=== PATIENT | female | born 1980 | race Caucasian/White ===

== ENCOUNTER 2020-09-19 11:12 | Outpatient (CLI) | payer MEDICAID, SELFPAY ==
--- NOTE | 2020-09-19 11:27 | XR_ITS ---
WS: [id number] Right shoulder, 3 views, 09/19/2020 Clinical Data: PAIN IN R SHOULDER/PINCHED NERVE IN NECK Comparison: Right shoulder, 10/13/2010. Findings: No fractures or dislocations are seen. The AC joint is normal. The adjacent right clavicle, right sca pula and ribs are normal. The soft tissues are unremarkable. XR/XR shoulder RT min 2V* [id number] Impression: Negative right shoulder.
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
== END 2020-09-19 11:13 | disposition home or self-care (01) ==
LOC: RAD 11:15
PROVIDERS: Family Provider Nurse Practitioner Family; Visit Provider Family Medicine
DX: M25.511 Pain in right shoulder (principal); G58.9 Mononeuropathy, unspecified
CPT/HCPCS: 72040; 73030

== ENCOUNTER 2021-04-27 11:30 | Emergency (ER) | payer MEDICAID, SELFPAY ==
[2021-04-27 11:56] VITALS: BP 142/85; PULSE 67; RESP 18; TEMP 36.8; O2SAT 98; BMI 28.1
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
== END 2021-04-27 12:52 | disposition home or self-care (01) ==
PROVIDERS: Emergency Provider Nurse Practitioner Family
DX: M79.641 Pain in right hand (principal)
CPT/HCPCS: 73000; 73130; 99282

== ENCOUNTER 2021-11-10 16:37 | Emergency (ER) | payer MEDICAID, SELFPAY ==
[2021-11-10 16:58] VITALS: BP 139/87; PULSE 71; RESP 16; TEMP 36.9; O2SAT 99
--- NOTE | 2021-11-10 17:35 | XRR_ITS ---
PROCEDURE INFORMATION: Exam: XR Right Wrist Exam date and time: 11/10/2021 5:35 PM Age: 41 years old Clinical indication: Injury or trauma; Other: Pile of wood fell on RT hand/wrist; Blunt trauma (contusions or hematomas); Wrist and hand; Right; Injury date: 11/02; Prior surgery; Surgery date: 6+ months; Additional info: Stack of wood fell on hand and wrist-swelling and pain TECHNIQUE: Imaging protocol: XR Right wrist. Views: 3 or more views. 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 Subchondral cystic changes sclerosis and flattening of the distal ulna and mild flattening of the adjacent lunate is also noted compatible with mild ulnar carpal abutment. No acute fracture or dislocation. Soft tissues: There is abundant soft tissue edema overlying the metacarpals and dorsum of the wrist. No foreign body. XR/XR wrist RT min 3V* [id number] IMPRESSION: No acute fracture or dislocation.
--- NOTE | 2021-11-10 17:35 | XRR_ITS ---
PROCEDURE INFORMATION: Exam: XR Right Hand Exam date and time: 11/10/2021 5:35 PM Age: 41 years old Clinical indication: Injury or trauma; Other: Pile of wood fell on RT hand; Blunt trauma (contusions or hematomas); Wrist and hand; Right; Injury date: 11/02; Prior surgery; Surgery date: 6+ months; Additional info: Stack of wood fell on hand and wrist-swelling and pain TECHNIQUE: Imaging protocol: XR Right hand. Views: 3 or more views. COMPARISON: CR XR hand RT min 3V* [id number] 04/27/2021 12:13 PM FINDINGS: Bones/joints: Severe osteoarthritic changes of the distal radioulnar joint compatible with distal radioulnar joint impingement with subchondral cysts and sclerosis is unchanged. There are [id number] diffuse osteoarthritic changes of the interphalangeal joints of all fingers and mild degenerative changes at the 1st carpometacarpal joint. No acute fracture or dislocation. Soft tissues: There is abundant soft tissue edema over the dorsum of the metacarpals with suspected soft tissue laceration. No foreign body. XR/XR hand RT min 3V* [id number] IMPRESSION: 1. There is abundant soft tissue edema over the dorsum of the metacarpals with suspected soft tissue laceration. 2. No acute fracture or dislocation.
--- NOTE | 2021-11-10 17:42 | ED_ITS ---
HPI - Extremity Problem General: Chief complaint: Extremity Injury, Upper Stated complaint: RUE INJURY X 1 WK Time Seen by Provider: 11/10/21 17:19 History of Present Illness: HPI Narrative: Patient is a 41-year-old female comes to the ED with injury to right hand and wrist. Patient says approximately 8 days ago on November 02 she was stacking some wood and a heavy stack of wood fell and hit her right hand and wrist. Since then she has felt 9 out of 10 pain in her right hand and wrist she is trying to splint herself at home and is put cold packs on hand and wrist to try to help with the swelling, she has limited movement in wrist and her fingers due to pain and swelling. She has not seen any healthcare provider to check on right hand and wrist injury since her injury over 8 days ago. She has some tramadol she took today to help with pain and she says it helped minimally. Associated symptoms: Deny chest pain, fever(s) or rash Review of Systems Const: Denies: fever(s), chills or fatigue Eyes: Denies: change in vision or eye discomfort ENMT: Denies: throat pain, odynophagia, nasal discharge or nasal congestion Card: Denies: chest pain, palpitations, edema, swelling of feet/ankles, dyspnea on exertion or orthopnea Resp: Denies: dyspnea, productive cough or non-productive cough GI: Denies: abdominal pain, nausea, vomiting, diarrhea, constipation or hematochezia : Denies: flank pain, dysuria or hematuria Musc: Reports: extremity pain (right hand and wrist), extremity swelling (right hand and wrist) and limited range of motion (right hand and wrist); Denies: neck pain or back pain Skin/Breast: Denies: rash or new lesions Neuro: Denies: headache(s), numbness in extremities or weakness in extremities Physical Exam Const: COMMON NORMALS: no acute distress, patient oriented x3 and alert GENERAL APPEARANCE: cooperative and comfortable HENMT: COMMON NORMALS: normocephalic HEAD & SCALP: normocephalic MOUTH: Normal oral and palatal mucosa present THROAT: posterior oropharynx normal and uvula midline Neck/C-Spine: COMMON NORMALS: supple GENERAL: Yes normal visual inspection Resp: COMMON NORMALS: normal respiratory effort, No retractions, No use of accessory muscles and clear to auscultation bilaterally AUSCULTATION: clear to auscultation bilaterally Cardio: COMMON NORMALS: regular rate, regular rhythm, S1 normal heart sound present, S2 normal heart sound present, No gallops present (Cardio), No clicks present (Cardio), No murmurs present (Cardio) and Peripheral pulses 2+ throughout RATE: regular rate RHYTHM: regular rhythm HEART SOUNDS: S1 normal heart sound present and S2 normal heart sound present PERIPHERAL PULSES: Peripheral pulses 2+ throughout GI: COMMON NORMALS: Normal to inspection, nondistended, normoactive bowel sounds present, Soft to palpation, non-tender and no masses PALPATION: Yes Soft to palpation : COMMON NORMALS: Yes no CVA tenderness BLADDER/KIDNEY EXAM: Yes no CVA tenderness Back/Pelvis: COMMON NORMALS: no CVA tenderness Extremity: GENERAL: Yes normal exam except as noted RIGHT UPPER EXTREMITY: Yes hand & digits Right hand and digits: Yes inspection (Significant ecchymosis and swelling in hand. no visible deformity), Yes palpation (Tenderness over dorsal aspect of hand), Yes ROM exam (Limited due to pain) and Yes neurovascular exam (Intact) Neuro: COMMON NORMALS: patient oriented x3 and moves all extremities SENSORIUM/ORIENTATION: Yes alert Skin: GENERAL SKIN EXAM: dry skin Course Vital Signs: Vital signs: Vital Signs Temperature 98.4 F 11/10/21 16:58 Pulse Rate 71 11/10/21 16:58 Respiratory Rate 18 11/10/21 19:13 Blood Pressure 139/87 11/10/21 16:58 Pulse Oximetry 99 11/10/21 16:58 MDM - Extremity (Nontraumatic) MDM Narrative: Medical decision making narrative: Patient is a 41-year-old female comes to the ED with an injury to right hand. Patient injured right hand little over a week ago and is still having some pain and swelling. Vital stable. Exam of patient shows right hand with significant ecchymosis and swelling noted over dorsal aspect of right hand. No visible deformity noted. Neurovascular intact. X-ray of right hand and right wrist show no acute fractures or findings. Due to patient's significant swelling and ecchymosis a week after injury I placed patient in a sugar tong splint and she says she is going to follow-up with her primary care in a week and also contact her orthopedic doctor in [place] as well for follow-up. I am suspicious for possible occult fracture but she can follow-up with her Ortho or PCP in a week to 10 days for further evaluation. She was discharged home with a written prescription for hydrocodone 5/325mg tabs #8tabs dispensed for any acute pain. Imaging Data^: Xray Ortho: Attestation: I personally reviewed and interpreted this imaging study as follows: Radiologist's impression: [address] [address] XRay Report Signed Patient: Mignon Huggins Unit #: [id number] : 1980 Age/Sex: 41 / F ADM Date: 11/10/21 Loc: ER Room/Bed: Attending Dr: Ordering Provider/Ordering MD: Tiago Jean Date of Service: 11/10/21 Procedure(s): XR wrist RT min 3V* [id number] Accession Number(s): [id number] Report Number: [id number] PROCEDURE INFORMATION: Exam: XR Right Wrist Exam date and time: 11/10/2021 5:35 PM Age: 41 years old Clinical indication: Injury or trauma; Other: Pile of wood fell on RT hand/wrist; Blunt trauma (contusions or hematomas); Wrist and hand; Right; Injury date: 11/02; Prior surgery; Surgery date: 6+ months; Additional info: Stack of wood fell on hand and wrist-swelling and pain TECHNIQUE: Imaging protocol: XR Right wrist. Views: 3 or more views. 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 Subchondral cystic changes sclerosis and flattening of the distal ulna and mild flattening of the adjacent lunate is also noted compatible with mild ulnar carpal abutment. No acute fracture or dislocation. Soft tissues: There is abundant soft tissue edema overlying the metacarpals and dorsum of the wrist. No foreign body. XR/XR wrist RT min 3V* [id number] IMPRESSION: No acute fracture or dislocation. Dictated By: Carey Cleaning Signed By: Carey Cleaning Signed Date/Time: [id number] DD/ [address] [address] XRay Report Signed Patient: Mignon Huggins Unit #: [id number] : 1980 Age/Sex: 41 / F ADM Date: 11/10/21 Loc: ER Room/Bed: Attending Dr: Ordering Provider/Ordering MD: Tiago Jean Date of Service: 11/10/21 Procedure(s): XR hand RT min 3V* [id number] Accession Number(s): [id number] Report Number: [id number] PROCEDURE INFORMATION: Exam: XR Right Hand Exam date and time: 11/10/2021 5:35 PM Age: 41 years old Clinical indication: Injury or trauma; Other: Pile of wood fell on RT hand; Blunt trauma (contusions or hematomas); Wrist and hand; Right; Injury date: 11/02; Prior surgery; Surgery date: 6+ months; Additional info: Stack of wood fell on hand and wrist-swelling and pain TECHNIQUE: Imaging protocol: XR Right hand. Views: 3 or more views. COMPARISON: CR XR hand RT min 3V* [id number] 04/27/2021 12:13 PM FINDINGS: Bones/joints: Severe osteoarthritic changes of the distal radioulnar joint compatible with distal radioulnar joint impingement with subchondral cysts and sclerosis is unchanged. There are [id number] diffuse osteoarthritic changes of the interphalangeal joints of all fingers and mild degenerative changes at the 1st carpometacarpal joint. No acute fracture or dislocation. Soft tissues: There is abundant soft tissue edema over the dorsum of the metacarpals with suspected soft tissue laceration. No foreign body. XR/XR hand RT min 3V* [id number] IMPRESSION: 1. There is abundant soft tissue edema over the dorsum of the metacarpals with suspected soft tissue laceration. 2. No acute fracture or dislocation. Dictated By: Carey Cleaning Signed By: Carey Cleaning Signed Date/Time: 11/10/211821 DD/ 34 Discharge Plan Discharge Patient Disposition: Home Clinical Impression: Injury of hand, right Qualifiers: Encounter type: initial encounter Qualified Code(s): S69.91XA - Unspecified injury of right wrist, hand and finger(s), initial encounter Condition: Stable Discharge Orders: Discharge ED (Routine); Ordered 11/10/21 Ordered By: Tiago Jean Discharge Diet: Regular Discharge Activity: Limit activity as instructed Patient Instructions: Opioid Safety Activity Restrictions/Additional Instructions: Follow-up with primary care physician as directed in 5 to 7 days for reevaluation. Also contact your orthopedic surgeon as well for follow-up. Take medications as prescribed. You can also take ibuprofen up to 800 mg every 8 hours to help with pain and inflammation as well. Rest and elevate right arm to help with the swelling. Continue applying cold pack on right arm to help with swelling and symptoms as well. Return to the ER or your medical provider if condition worsens. Please read and understand discharge instructions. Thank you for choosing [facility] for your healthcare needs today. Please realize this is an emergency room and that we are providing you with a medical screening exam and this may not be complete and all inclusive of all the testing and or work up that you may need to determine your ailment or severity of your illness. It is very important that you follow up as instructed or that you return to the Emergency Department should you have concerns or if your condition changes or worsens in any way. Coding Level of Care Code ED Shredded Filler Cutter Operator for Darrion Langford Exam Comprehensive
[2021-11-10] MEDS: HYDROcodone-acetaminophen 7.5-325 mg Tablet 1 TAB PO (18:51)
[2021-11-10 19:13] VITALS: RESP 18
== END 2021-11-10 19:18 | disposition home or self-care (01) ==
PROVIDERS: Emergency Provider Physician Assistant
DX: S69.91XA Unspecified injury of right wrist, hand and finger(s), initial encounter (principal)
CPT/HCPCS: 29125; 73110; 73130; 99283

== ENCOUNTER 2023-12-12 19:45 | Emergency (ER) | payer MEDICAID, SELFPAY ==
[2023-12-12 19:57] VITALS: BP 120/76; PULSE 117; RESP 18; TEMP 36.6; O2SAT 93; BMI 25.2
[2023-12-12 22:07] LABS: Basophils % 0.3 %; Eosinophils % 0.2 %; Hematocrit 35.5 % (36-47); Lymphocytes # 0.2 10^3/uL (0.8-4.8); Lymphocytes % 3.6 %; Mean Corpuscular HGB Conc 33.8 g/dL (30-55); Mean Corpuscular Hemoglobin 31.4 pg (27-33); Mean Corpuscular Volume 92.9 fl (85-98); Mean Platelet Volume 9.8 fL (7.4-10.4); Monocytes # 0.4 10^3/uL (0.2-0.9); Monocytes % 6.8 %; Neutrophils # 5.65 10^3/uL (1.8-7.7); Neutrophils % 88.8 %; Nucleated Red Blood Cells % 0 %; Platelet Count 246 10^3/cmm (157-399); Red Blood Count 3.82 10^6/uL (3.85-5.65); Red Cell Distribution Width 11.9 % (12.1-15.1); White Blood Count 6.36 10^3/uL (3.29-11.43)
[2023-12-12 22:09] LABS: Alanine Aminotransferase 14 U/L (0-33); Albumin Level 3.7 g/dL (3.5-5.2); Alkaline Phosphatase 101 U/L (35-105); Anion Gap 16.9 (5-19); Aspartate Amino Transferase 18 U/L (0-32); Blood Urea Nitrogen 3 mg/dL (6-20); Calcium 8.8 mg/dL (8.5-10.5); Carbon Dioxide 22 mmol/L (22-29); Chloride 103 mmol/L (98-107); Globulin 3.4 g/dL (1.3-4.6); Glomerular Filtration Rate 91.8 mL/min (90-130); Glucose 142 mg/dL (65-115); Osmolality Calculated 285 mOsm/kg (285-295); Potassium 3.9 mmol/L (3.5-5.1); Sodium 138 mmol/L (136-145); Total Bilirubin 0.2 mg/dL (0.15-1.2); Total Protein 7.1 g/dL (6.6-8.7)
--- NOTE | 2023-12-12 22:15 | XRR_ITS ---
PROCEDURE INFORMATION: Exam: XR Chest Exam date and time: 12/12/2023 10:31 PM Age: 43 years old Clinical indication: Other: Tachycardic; Additional info: Tachycardia TECHNIQUE: Imaging protocol: Radiologic exam of the chest. Views: 1 view. COMPARISON: [place] [id number] 04/27/2021 12:13 PM FINDINGS: Lungs: No focal consolidation. Pleural spaces: No evidence of pneumothorax. No evidence of pleural effusion. Heart/Mediastinum: Cardiomediastinal silhouette is within normal limits. Bones/joints: No evidence of acute osseous abnormality. A ring type metallic opacity projects over the mid abdomen, possibly ornamental. Correlation with clinical history for ingested foreign body is recommended. XR/XR chest 1V portable [id number] IMPRESSION: 1. No acute cardiopulmonary abnormality. 2. A ring type metallic opacity projects over the mid abdomen, possibly ornamental. Correlation with clinical history for ingested foreign body is recommended.
--- NOTE | 2023-12-12 22:15 | ECG_ITS ---
[facility] Test Date: 2023-12-12 Pat Name: Mignon Huggins Department: Room: Gender: Female [employer] Feeder: : 1980 Requested By: Hussein Olmedo Order Number: [id number] Rhonda MD: Stone Church M.D. Measurements Intervals [place] Rate: 97 P: 70 [place]: 137 QRS: 56 QRSD: 72 T: 64 QT: 361 QTc: 461 Interpretive Statements SINUS RHYTHM POSSIBLE LEFT ATRIAL ENLARGEMENT [-0.1mV P-WAVE IN V1/V2] ST DEVIATION AND MODERATE T-WAVE ABNORMALITY, CONSIDER ANTERIOR ISCHEMIA [-0.1+ mV T-WAVE IN V3/V4] No previous ECG available for comparison Electronically Signed On 12-13-2023 23:12:29 WILDLIFE REMOVAL SPECIALIST by Stone Church M.D. [email or web address]
--- NOTE | 2023-12-12 22:19 | ED_ITS ---
HPI - Weakness 2 General: Chief complaint: Weakness Stated complaint: General Medical Time Seen by Provider: 12/12/23 20:29 History of Present Illness: Patient presents to the ER with just feeling not well. Patient states for the last 16 hours has been extremely tired weak and has had chills. Patient denies any cough nausea vomiting diarrhea constipation. She says her grandchildren have been visiting with her for the last several days. Patient has had multiple bouts of napping off and on throughout the entire day which is not like her. Review of Systems 2 General: Reports: 10 or more systems reviewed and unremarkable except in HPI and below Physical Exam 2 Const: COMMON NORMALS: no acute distress, average body habitus, no limitations, healthy appearing and alert HENMT: COMMON NORMALS: normocephalic, atraumatic, hearing grossly normal bilaterally, Normal external nose present, moist oral mucous membranes and oropharynx normal HEAD & SCALP: normocephalic and atraumatic NOSE: Normal external nose present Neck/C-Spine: COMMON NORMALS: no JVD Chest: COMMONS NORMALS: normal inspection of the chest and normal palpation of entire chest wall Resp: COMMON NORMALS: normal respiratory effort, No retractions, No use of accessory muscles and clear to auscultation bilaterally AUSCULTATION: clear to auscultation bilaterally Cardio: COMMON NORMALS: no JVD, regular rate, regular rhythm, S1 normal heart sound present, S2 normal heart sound present, No gallops present (Cardio), No clicks present (Cardio) and No murmurs present (Cardio) RATE: regular rate RHYTHM: regular rhythm HEART SOUNDS: S1 normal heart sound present and S2 normal heart sound present GI: COMMON NORMALS: Normal to inspection, nondistended, normoactive bowel sounds present, Soft to palpation, non-tender, No hepatosplenomegaly present and no masses PALPATION: Yes Soft to palpation and Yes No hepatosplenomegaly present Neuro: SENSORIUM/ORIENTATION: Yes alert Course 2 Vital Signs: Vital signs: Vital Signs Temperature 98 F 12/12/23 19:57 Pulse Rate 117 H 12/12/23 19:57 Respiratory Rate 18 12/12/23 19:57 Blood Pressure 120/76 12/12/23 19:57 Pulse Oximetry 93 12/12/23 19:57 MDM - Weakness Medical Decision Making Patient has CBC CMP chest x-ray UA magnesium influenza COVID all which were essentially benign, magnesium was mildly low at 1.4. There is no acute reason to explain the patient's fatigue and general feeling unwell. Patient be discharged from the ER and should follow back up with her primary care physician for further evaluation and treatment. Differential Diagnosis Unlikely acute myocardial infarction, anemia, hypoglycemia, hypothyroidism, rhabdomyolysis, sepsis or dehydration Medical Records I reviewed the patient's medical records. Lab Data I reviewed the patient's lab results. 12/12/23 21:44 12/12/23 21:44 Radiology Impressions Chest X-Ray 12/12/23 22:15 IMPRESSION: 1. No acute cardiopulmonary abnormality. 2. A ring type metallic opacity projects over the mid abdomen, possibly ornamental. Correlation with clinical history for ingested foreign body is recommended. Laboratory Results WBC 6.36 10^3/uL (3.29-11.43) 12/12/23 21:44 RBC 3.82 10^6/uL (3.85-5.65) L 12/12/23 21:44 Hgb 12.00 g/dL (11.27-16.99) 12/12/23 21:44 Hct 35.5 % (36-47) L 12/12/23 21:44 MCV 92.9 fl (85-98) 12/12/23 21:44 MCH 31.4 pg (27-33) 12/12/23 21:44 MCHC 33.8 g/dL (30-55) 12/12/23 21:44 RDW 11.9 % (12.1-15.1) L 12/12/23 21:44 Plt Count 246 10^3/cmm (157-399) 12/12/23 21:44 MPV 9.8 fL (7.4-10.4) 12/12/23 21:44 Neut % (Auto) 88.8 % 12/12/23 21:44 Lymph % (Auto) 3.6 % 12/12/23 21:44 [place] % (Auto) 6.8 % 12/12/23 21:44 Eos % (Auto) 0.2 % 12/12/23 21:44 Baso % (Auto) 0.3 % 12/12/23 21:44 Neut # (Auto) 5.65 10^3/uL (1.8-7.7) 12/12/23 21:44 Lymph # (Auto) 0.2 10^3/uL (0.8-4.8) L 12/12/23 21:44 [place] # (Auto) 0.4 10^3/uL (0.2-0.9) 12/12/23 21:44 Eos # (Auto) 0.0 10^3/uL (0.0-0.8) 12/12/23 21:44 Baso # (Auto) 0.0 10^3/uL (0.0-0.1) 12/12/23 21:44 Nucleated RBC % (auto) 0 % 12/12/23 21:44 Nucleated RBCs # 0.0 /100WBC 12/12/23 21:44 Sodium 138 mmol/L (136-145) 12/12/23 21:44 Potassium 3.9 mmol/L (3.5-5.1) 12/12/23 21:44 Chloride 103 mmol/L (98-107) 12/12/23 21:44 Carbon Dioxide 22 mmol/L (22-29) 12/12/23 21:44 Anion Gap 16.9 (5-19) 12/12/23 21:44 BUN 3 mg/dL (6-20) L 12/12/23 21:44 Creatinine 0.7 mg/dL (0.5-0.9) 12/12/23 21:44 GFR Calculation 91.8 mL/min (90-130) 12/12/23 21:44 Glucose 142 mg/dL (65-115) H 12/12/23 21:44 Calculated Osmolality 285 mOsm/kg (285-295) 12/12/23 21:44 Calcium 8.8 mg/dL (8.5-10.5) 12/12/23 21:44 Magnesium 1.4 mg/dL (1.7-2.3) L 12/12/23 21:44 Total Bilirubin 0.2 mg/dL (0.15-1.2) 12/12/23 21:44 AST 18 U/L (0-32) 12/12/23 21:44 ALT 14 U/L (0-33) 12/12/23 21:44 Alkaline Phosphatase 101 U/L (35-105) 12/12/23 21:44 Total Protein 7.1 g/dL (6.6-8.7) 12/12/23 21:44 Albumin 3.7 g/dL (3.5-5.2) 12/12/23 21:44 Globulin 3.4 g/dL (1.3-4.6) 12/12/23 21:44 Urine Color Yellow (Yellow) 12/12/23 22:00 Urine Appearance Sl hazy (CLEAR) A 12/12/23 22:00 Urine pH 5 (5-7) 12/12/23 22:00 Ur Specific [place] 1.020 (1.005-1.030) 12/12/23 22:00 Urine Protein Trace (Negative) 12/12/23 22:00 Urine Glucose (UA) Norm (Normal) 12/12/23 22:00 Urine Ketones 1+ (Negative) H 12/12/23 22:00 Urine Blood Neg (Negative) 12/12/23 22:00 Urine Nitrate Negative (Negative) 12/12/23 22:00 Urine Bilirubin 1+ (Negative) H 12/12/23 22:00 Urine Urobilinogen Norm mg/dL (Negative) 12/12/23 22:00 Ur Leukocyte Esterase Trace (Negative) H 12/12/23 22:00 Urine RBC Cancelled 12/12/23 22:00 Urine WBC Cancelled 12/12/23 22:00 Ur Squamous Epith Cells Cancelled 12/12/23 22:00 Ur Transition Epith Cell Cancelled 12/12/23 22:00 Ur Renal Epithelial Cell Cancelled 12/12/23 22:00 Calcium Oxalate Crystal Cancelled 12/12/23 22:00 Uric Acid Crystals Cancelled 12/12/23 22:00 Triple Phos Crystals Cancelled 12/12/23 22:00 Other Crystals Cancelled 12/12/23 22:00 Amorphous Sediment Cancelled 12/12/23 22:00 Urine Bacteria Cancelled 12/12/23 22:00 Hyaline Casts Cancelled 12/12/23 22:00 Fine Granular Casts Cancelled 12/12/23 22:00 Coarse Granular Casts Cancelled 12/12/23 22:00 RBC Casts Cancelled 12/12/23 22:00 Other Casts Cancelled 12/12/23 22:00 Urine Mucus Cancelled 12/12/23 22:00 Urine Trichomonas Cancelled 12/12/23 22:00 Urine Yeast Cancelled 12/12/23 22:00 Urine Sperm Cancelled 12/12/23 22:00 Ur Oval Fat Bodies Cancelled 12/12/23 22:00 Influenza Type A Ag negative (Negative) 12/12/23 22:00 Influenza Type B Ag negative (Negative) 12/12/23 22:00 SARS-CoV-2 Ag (Rapid) negative (Negative) 12/12/23 22:00 All radiology interpretation(s) finalized by discharge Discharge Plan Discharge Patient Disposition: Home Clinical Impression: Hypomagnesemia Fatigue Qualifiers: Fatigue type: unspecified Qualified Code(s): R53.83 - Other fatigue Condition: Stable Prescriptions: New magnesium oxide 400 mg magnesium capsule 400 mg PO DAILY Qty: 30 0RF Discharge Orders: Discharge ED (Routine); Ordered 12/12/23 Ordered By: Hussein Olmedo Patient Instructions: Fatigue, Hypomagnesemia (ED) Activity Restrictions/Additional Instructions: Your workup in ER did not show any acute cause of your fatigue and feeling unwell. Your magnesium was a little bit low. A prescription for magnesium supplement will be called into your pharmacy. You may benefit from further evaluation and testing. Please follow-up with your family practice physician within the next 7 days for this. Coding Level of Care Code ED Records Administrator for Darrion Langford
[2023-12-12 22:27] LABS: Influenza A by IFA negative (Negative); Influenza B by IFA negative (Negative); SARS Covid-2 Antigen negative (Negative)
[2023-12-12 22:35] LABS: Add Urine Microscopic? YES
[2023-12-12 22:36] LABS: Bilirubin Urine 1+ (Negative); Blood Urine Neg (Negative); Glucose Urine UA Norm (Normal); Ketones Urine 1+ (Negative); Leukocyte Esterase Urine Trace (Negative); Nitrate Urine Negative (Negative); Protein Urine Trace (Negative); Urine Appearance SL Hazy (CLEAR); Urine Color Yellow (Yellow); Urobilinogen Urine Norm (Negative); pH Urine 5 (5-7)
[2023-12-12 22:43] LABS: Magnesium 1.4 mg/dL (1.7-2.3)
[2023-12-12 23:53] VITALS: BP 117/73; PULSE 103; O2SAT 94
== END 2023-12-12 23:55 | disposition home or self-care (01) ==
PROVIDERS: Nurse Practitioner Family; Emergency Provider Emergency Medicine
DX: R53.83 Other fatigue (principal); E83.42 Hypomagnesemia; Z11.52 Encounter for screening for COVID-19
CPT/HCPCS: 36415; 71045; 80053; 83735; 85025; 87426; 87804; 93005; 99285